=== PATIENT | male | born 1995 | race Caucasian/White ===

== ENCOUNTER 2021-05-25 08:36 | Emergency (ER) | payer OTHER, SELFPAY ==
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
[2021-05-25 09:53] VITALS: BP 123/78; PULSE 150; RESP 18; TEMP 36.4; O2SAT 98
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
== END 2021-05-25 10:47 | disposition home or self-care (01) ==
PROVIDERS: Emergency Provider Family Medicine
DX: S52.124A Nondisplaced fracture of head of right radius, initial encounter for closed fracture (principal); V18.4XXA Pedal cycle driver injured in noncollision transport accident in traffic accident, initial encounter; Y93.55 Activity, bike riding
CPT/HCPCS: 29105; 73080; 99284; A4565

== ENCOUNTER 2021-12-16 10:24 | Emergency (ER) | payer SELFPAY ==
[2021-12-16 10:36] VITALS: BP 135/67; PULSE 79; RESP 16; TEMP 37.1; O2SAT 100
--- NOTE | 2021-12-16 10:40 | ED.URI ---
HPI - URI/Sore Throat General Chief Complaint: Upper Respiratory Infection Stated Complaint: sore throat Time Seen by Provider: 12/16/21 10:40 Source: patient Mode of arrival: ambulatory Limitations: no limitations History of Present Illness HPI Narrative: Theodore is a 26-year-old male patient presenting to the clinic today with complaints of sore throat x1 day. He reports he was working with a gal who was complaining of a sore throat however he did not know if she had strep or not. He thinks he may have had a slight fever yesterday with some chills but nothing drastic per patient. He is concerned that he may have strep throat. MD elicited complaint: sore throat Related Data Allergies Allergy/AdvReac Type Severity Reaction Status Date / Time HYDROCODONE BIT Allergy Unknown Unknown Uncoded 05/25/21 09:58 Review of Systems Review of Systems: Pertinent positives per HPI. Patient denies any fever, chills, rash, headache, visual changes, dizziness, nasal discharge, cough, shortness of breath, chest pain, palpitations, nausea, vomiting, diarrhea, constipation, abdominal pain, or any urinary issues. PMFSH Family History Family History Other Hypertension Social History Social History Second hand tobacco smoke exposure: No Alcohol intake: never Comments At the time of my signature, I reviewed and agree with the nursing past medical, surgical, social, and family history. There is no relevant family history pertinent to the patient complaint. Exam Narrative: General: Well-developed, well nourished, in no apparent distress Head: Normocephalic, atraumatic Eyes: Pupils equally round and reactive to light bilaterally, EOM intact, sclera and conjunctive clear, no discharge, lids normal Ears: TMs intact and clear, ear canals clear, no drainage, grossly hearing normal. Nose: Nares patent, no discharge, no inflammation, no sinus tenderness. Mouth: Oral pharynx without lesions or masses, good dentition, MMM. Bilateral tonsillar enlargement without any visible exudate. Oropharynx red and erythemic Neck: Supple, trachea midline, mild enlargement of anterior cervical nodes, no thyroid masses or goiter palpable. Cardio: Regular rate and rhythm, s1 and s2 normal, no murmur appreciated. Resp: Clear to auscultation bilaterally, no rhonchi, rales, wheezing or rubs Course Course Emergency Course: Portions of this record may have been created with voice recognition software. Level of Care: Express Care Visit Vital Signs Vital signs: Vital Signs Temperature 37.1 C 12/16/21 10:36 Pulse Rate 79 12/16/21 10:36 Respiratory Rate 16 12/16/21 10:36 Blood Pressure 135/67 12/16/21 10:36 Pulse Oximetry 100 12/16/21 10:36 Temperature 37.1 C 12/16/21 10:36 Pulse Rate 79 12/16/21 10:36 Respiratory Rate 16 12/16/21 10:36 Blood Pressure 135/67 12/16/21 10:36 Pulse Oximetry 100 12/16/21 10:36 Vital signs reviewed MDM - URI/Sore Throat MDM Narrative Medical decision making narrative: At the time of visit patient complains of sore throat x1 day. Strep screen is positive in the clinic. We will send patient with a prescription for amoxicillin. Strep pharyngitis instructions given. Differential Diagnosis Differential diagnosis: Likely upper respiratory infection, sinusitis, viral infection and influenza Discharge Plan Discharge Clinical Impression: Acute streptococcal pharyngitis Patient Disposition: Home, Self-Care Condition: Stable Instructions: Antibiotic Form, Strep Throat (ED) Additional Instructions: Take prescription medications only as prescribed. Amoxicillin as prescribed. Change toothbrush in 24 hours after the start of the antibiotic. Increase fluids and stay well hydrated Tylenol/motrin for pain/fever Flonase and OTC antihistamines as directed [place]
== END 2021-12-16 10:45 | disposition home or self-care (01) ==
PROVIDERS: Emergency Provider Nurse Practitioner Family
DX: J02.0 Streptococcal pharyngitis (principal)
CPT/HCPCS: 87880; 99213; G0463